=== PATIENT | male | born 1955 | race African-American/Black ===

== ENCOUNTER 2017-01-08 19:09 | Inpatient (IN) | payer BC ==
[~2017-01-08] VITALS: Ht 188 cm; Wt 75.7 kg
[2017-01-08] MEDS ORDERED: GLIP10TA13 PO (19:53)
[2017-01-08] MEDS ORDERED: INSU100I17 SQ (19:53)
[2017-01-08] MEDS ORDERED: RISP1TAB43 PO (19:53)
[2017-01-08] MEDS ORDERED: SERT25TA PO (19:53)
[2017-01-08] MEDS ORDERED: ENOX40DI SQ (19:53)
[2017-01-08] MEDS ORDERED: INSU100I13 SQ (19:53)
[2017-01-08] MEDS ORDERED: HYDR50TA6 PO (19:53)
[2017-01-08] MEDS ORDERED: LISI40TA PO (19:53)
[2017-01-08] MEDS ORDERED: AMLO10TA2 PO (19:53)
[2017-01-08] MEDS ORDERED: METF500T4 PO (19:53)
[2017-01-08] MEDS ORDERED: METHYL SALICYLATE/MENTHOL TOPICAL OINTMENT 29GM TUBE. TP PRN (20:00)
[2017-01-08] MEDS ORDERED: MAGNESIUM HYDROXIDE 2,400 MG/30 ML ORAL.SUSP. PO PRN (20:00)
[2017-01-08] MEDS ORDERED: MAG HYDROX/AL HYDROX/SIMETH 30 ML ORAL.SUSP PO PRN (20:00)
[2017-01-08] MEDS ORDERED: DEXTROSE 50% 25 GM / 50ML DISP.SYRIN. IV PRN ×2 (20:15)
--- NOTE | 2017-01-08 20:22 | PDOC ---
Exam Raymond Demential Exam: Raymond Note: Please also refer to the separate dictated note~for this date of service dictated separately.~Patient seen individually. Discussed the patient with Nursing staff reviewed the chart.~Reviewed interim history and current functioning. Reviewed vital signs,~Labs/ Radiology~and current medications noted below. Continue current treatment with the changes noted in the dictated addendum note Assessment: Labs: Laboratory Tests Test 01/08/17 19:33 Glucose (Fingerstick) 256 mg/dL (70-99) H Current Medications: Meds: Current Medications Acetaminophen (Tylenol) 650 mg PRN Q6HRS PRN PO PAIN / TEMP; Start 01/08/17 at 20:00 Multi-Ingredient Ointment (Analgesic [place]) 1 meenakshi PRN QID PRN TP MUSCLE PAIN; Start 01/08/17 at 20:00 Al Hydroxide/Mg Hydroxide (Mylanta Plus Xs) 15 ml PRN AFTMEALHC PRN PO DYSPEPSIA; Start 01/08/17 at 20:00 Magnesium Hydroxide (Milk Of Magnesia) 2,400 mg PRN QHS PRN PO CONSTIPATION; Start 01/08/17 at 20:00 Risperidone (RisperDAL) 1 mg BID PO ; Start 01/08/17 at 21:00 Sertraline HCl (Zoloft) 25 mg DAILY PO ; Start 01/09/17 at 09:00 Amlodipine Besylate (Norvasc) 10 mg HS PO ; Start 01/08/17 at 21:00; Status UNV Enoxaparin Sodium (Lovenox) 40 mg HS SQ ; Start 01/08/17 at 21:00; Status UNV Non-Formulary Medication 20 unit QHS SQ ; Start 01/08/17 at 21:00; Status UNV Dextrose 12.5 gm PRN Q15MIN PRN IV SEE COMMENTS; Start 01/08/17 at 20:15; Status UNV Insulin Aspart (NovoLOG) 0-5 UNITS TIDWMEALHC SQ ; Start 01/08/17 at 21:00; Status UNV Dextrose 12.5 gm PRN Q15MIN PRN IV SEE COMMENTS; Start 01/08/17 at 20:15; Status UNV Active Scripts Active Reported Lovenox (Enoxaparin Sodium) 40 Mg/0.4 Ml Disp.syrin 40 Mg SQ HS Zoloft (Sertraline Hcl) 25 Mg Tablet 25 Mg PO DAILY Risperdal (Risperidone) 1 Mg Tablet 1 Mg PO BID Metformin Hcl 500 Mg Tablet 500 Mg PO BIDWMEALS Lisinopril 40 Mg Tablet 40 Mg PO DAILY Lantus Solostar (Insulin Glargine,Hum.rec.anlog) 100 Unit/1 Ml Insuln.pen 20 Unit SQ QHS Novolog Flexpen (Insulin Aspart) 100 Unit/1 Ml Insuln.pen 0-7 Unit SQ TIDACHC Hydrochlorothiazide Tablet (Hydrochlorothiazide) 50 Mg Tablet 25 Mg PO DAILY Glipizide 10 Mg Tablet 10 Mg PO DAILY Amlodipine Besylate 10 Mg Tablet 10 Mg PO HS RUBI DELEON MD Jan 08, 2017 20:22
[2017-01-08] MEDS: amLODIPine BESYLATE 10 MG TABLET PO SCH (20:50)
[2017-01-08] MEDS: ENOXAPARIN 40 MG/0.4 ML DISP.SYRIN. SQ SCH (20:50)
[2017-01-08] MEDS: risperiDONE 1 MG TABLET. PO SCH (20:51)
[2017-01-08] MEDS: INSULIN DETEMIR 300 UNITS/3 ML INSULN.PEN. SQ SCH (20:52)
[2017-01-08] MEDS ORDERED: INSULIN ASPART 300 UNITS/3 ML INSULN.PEN SQ SCH (21:00)
--- NOTE | 2017-01-08 21:07 | EKG ---
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
[2017-01-08] MEDS ORDERED: LEDI1TAB PO (21:33)
[2017-01-08 23:01] VITALS: BP 176/101
[2017-01-09 05:58] VITALS: BP 138/76
[2017-01-09 07:00] LABS: BASO % 0 % (0-3); EOS # 0.2 x10^3/uL (0.0-0.7); EOS % 3 % (0-3); HEMATOCRIT 42.2 % (39.0-53.0); HEMOGLOBIN 14.7 g/dL (13.0-17.5); LYMPH # 2.1 x10^3/uL (1.0-4.8); LYMPH % 31 % (24-48); MEAN CORPUSCULAR HEMOGLOBIN 32 pg (25-35); MEAN CORPUSCULAR HGB CONC 35 g/dL (31-37); MEAN CORPUSCULAR VOLUME 91 fL (79-100); MONO # 0.5 x10^3/uL (0.0-1.1); MONO % 8 % (0-9); NEUT # 4.1 x10^3uL (1.8-7.7); NEUT % 58 % (31-73); PLATELET COUNT 160 x10^3/uL (140-400); RED BLOOD COUNT 4.66 x10^6/uL (4.30-5.70); RED CELL DISTRIBUTION WIDTH 13.9 % (11.5-14.5)
[2017-01-09 07:18] LABS: ALBUMIN 3.7 g/dL (3.4-5.0); ALBUMIN/GLOBULIN RATIO 0.8 (1.0-1.7); CALCIUM 9.4 mg/dL (8.5-10.1); CREATININE 1.7 mg/dL (0.7-1.3); GFR 49.7; MAGNESIUM 1.8 mg/dL (1.8-2.4); POTASSIUM 4.4 mmol/L (3.5-5.1); TOTAL BILIRUBIN 0.4 mg/dL (0.2-1.0); TOTAL PROTEIN 8.3 g/dL (6.4-8.2)
[2017-01-09] MEDS ORDERED: DEXTROSE 50% 25 GM / 50ML DISP.SYRIN. IV PRN (07:45)
[2017-01-09] MEDS: metFORMIN 500 MG TABLET PO SCH ×2 (08:07→17:03)
[2017-01-09] MEDS: LISINOPRIL 20 MG TABLET PO SCH (08:09)
[2017-01-09] MEDS: glipiZIDE 5 MG TABLET PO SCH (08:09)
[2017-01-09] MEDS: risperiDONE 1 MG TABLET. PO SCH ×2 (08:10→20:33)
[2017-01-09] MEDS: hydroCHLOROthiazide 25 MG TABLET PO SCH (08:10)
[2017-01-09] MEDS ORDERED: SERTRALINE 25 MG TABLET. PO SCH (09:00)
[2017-01-09] MEDS ORDERED: NON FORMULARY ITEM (Ledipasvir/Sofosbuvir (Harvoni 90-400 mg Tablet) 1 TAB) PO SCH (09:00)
[2017-01-09] MEDS: INSULIN ASPART 300 UNITS/3 ML INSULN.PEN SQ SCH ×3 (11:30→20:35)
[2017-01-09 14:38] LABS: THYROID STIM HORMONE (TSH) 1.502 uIU/mL (0.358-3.740)
[2017-01-09 16:18] VITALS: BP 143/86
[2017-01-09 17:02] LABS: BACTERIA,URINE 0 /HPF (0-FEW); BILIRUBIN,URINE NEG (NEG); CLARITY,URINE CLEAR; COLOR,URINE YELLOW; GLUCOSE,URINE NEG (NEG); NITRITE,URINE NEG (NEG); SQUAMOUS EPITHELIAL CELL,UR FEW /LPF; UROBILINOGEN,URINE 0.2 mg/dL (0.2 mg/dL); WBC,URINE OCC /HPF (0-4)
[2017-01-09 17:03] LABS: HYALINE CASTS, URINE MOD /HPF
[2017-01-09 17:15] LABS: T3 TOTAL 110 ng/dL (71-180); THYROXINE 9.5 ug/dL (4.5-12.0)
[2017-01-09] MEDS: amLODIPine BESYLATE 10 MG TABLET PO SCH (20:33)
[2017-01-09] MEDS: INSULIN DETEMIR 300 UNITS/3 ML INSULN.PEN. SQ SCH (20:34)
[2017-01-09] MEDS: ENOXAPARIN 40 MG/0.4 ML DISP.SYRIN. SQ SCH (20:35)
--- NOTE | 2017-01-09 20:50 | PDOC ---
Exam Raymond Demential Exam: Raymond Note: Please also refer to the separate dictated note~for this date of service dictated separately.~Patient seen individually. Discussed the patient with Nursing staff reviewed the chart.~Reviewed interim history and current functioning. Reviewed vital signs,~Labs/ Radiology~and current medications noted below. Continue current treatment with the changes noted in the dictated addendum note Assessment: Vital Signs: Vital Signs Date Time Temp Pulse Resp B/P (MAP) Pulse Ox O2 Delivery O2 Flow Rate FiO2 01/09/17 20:33 83 143/86 01/09/17 16:18 97.6 18 100 01/08/17 23:01 Room Air I&O Intake and Output 01/10/17 06:59 Intake Total 870 ml Balance 870 ml Intake Oral 870 ml Labs: Laboratory Tests Test 01/09/17 06:45 01/09/17 08:18 01/09/17 11:45 01/09/17 15:25 White Blood Count 7.0 x10^3/uL (4.0-11.0) Red Blood Count 4.66 x10^6/uL (4.30-5.70) Hemoglobin 14.7 g/dL (13.0-17.5) Hematocrit 42.2 % (39.0-53.0) Mean Corpuscular Volume 91 fL (79-100) Mean Corpuscular Hemoglobin 32 pg (25-35) Mean Corpuscular Hemoglobin Concent 35 g/dL (31-37) Red Cell Distribution Width 13.9 % (11.5-14.5) Platelet Count 160 x10^3/uL (140-400) Neutrophils (%) (Auto) 58 % (31-73) Lymphocytes (%) (Auto) 31 % (24-48) Monocytes (%) (Auto) 8 % (0-9) Eosinophils (%) (Auto) 3 % (0-3) Basophils (%) (Auto) 0 % (0-3) Neutrophils # (Auto) 4.1 x10^3uL (1.8-7.7) Lymphocytes # (Auto) 2.1 x10^3/uL (1.0-4.8) Monocytes # (Auto) 0.5 x10^3/uL (0.0-1.1) Eosinophils # (Auto) 0.2 x10^3/uL (0.0-0.7) Basophils # (Auto) 0.0 x10^3/uL (0.0-0.2) Sodium Level 140 mmol/L (136-145) Potassium Level 4.4 mmol/L (3.5-5.1) Chloride Level 104 mmol/L (98-107) Carbon Dioxide Level 26 mmol/L (21-32) Anion Gap 10 (6-14) Blood Urea Nitrogen 29 mg/dL (8-26) H Creatinine 1.7 mg/dL (0.7-1.3) H Estimated GFR (Cockcroft-Gault) 49.7 BUN/Creatinine Ratio 17 (6-20) Glucose Level 141 mg/dL (70-99) H Calcium Level 9.4 mg/dL (8.5-10.1) Magnesium Level 1.8 mg/dL (1.8-2.4) Iron Level 60 ug/dL (65-175) L Total Iron Binding Capacity 280 ug/dL (250-450) Iron Saturation 21 % (15-34) Total Bilirubin 0.4 mg/dL (0.2-1.0) Aspartate Amino Transferase (AST) 23 U/L (15-37) Alanine Aminotransferase (ALT) 34 U/L (16-63) Alkaline Phosphatase 73 U/L (46-116) Total Protein 8.3 g/dL (6.4-8.2) H Albumin 3.7 g/dL (3.4-5.0) Albumin/Globulin Ratio 0.8 (1.0-1.7) L Triglycerides Level 71 mg/dL (0-150) Cholesterol Level 102 mg/dL (0-200) LDL Cholesterol, Calculated 45 mg/dL (0-100) VLDL Cholesterol, Calculated 14 mg/dL (0-40) Non-HDL Cholesterol Calculated 59 mg/dL (0-129) HDL Cholesterol 43 mg/dL (40-60) Cholesterol/HDL Ratio 2.0 Vitamin B12 Level 499 pg/mL (247-911) 25-Hydroxy Vitamin D Total Pending Thyroid Stimulating Hormone (TSH) 1.502 uIU/mL (0.358-3.740) Thyroxine (T4) 9.5 ug/dL (4.5-12.0) Total Triiodothyronine (TT3) 110 ng/dL (71-180) RPR Titer Additional Testing Pending Glucose (Fingerstick) 149 mg/dL (70-99) H 142 mg/dL (70-99) H Urine Collection Type Unknown Urine Color Yellow Urine Clarity Clear Urine pH 5.0 Urine Specific [place] 1.020 Urine Protein Neg (NEG-TRACE) Urine Glucose (UA) Neg mg/dL (NEG) Urine Ketones (Stick) Neg mg/dL (NEG) Urine Blood Trace (NEG) Urine Nitrite Neg (NEG) Urine Bilirubin Neg (NEG) Urine Urobilinogen Dipstick 0.2 mg/dL (0.2 mg/dL) Urine Leukocyte Esterase Neg (NEG) Urine RBC 3-5 /HPF (0-2) Urine WBC Occ /HPF (0-4) Urine Squamous Epithelial Cells Few /LPF Urine Bacteria 0 /HPF (0-FEW) Urine Hyaline Casts Mod /HPF Urine Mucus Mod /LPF Test 01/09/17 16:56 01/09/17 19:53 Glucose (Fingerstick) 165 mg/dL (70-99) H 164 mg/dL (70-99) H Current Medications: Meds: Current Medications Acetaminophen (Tylenol) 650 mg PRN Q6HRS PRN PO PAIN / TEMP; Start 01/08/17 at 20:00 Multi-Ingredient Ointment (Analgesic [place]) 1 meenakshi PRN QID PRN TP MUSCLE PAIN; Start 01/08/17 at 20:00 Al Hydroxide/Mg Hydroxide (Mylanta Plus Xs) 15 ml PRN AFTMEALHC PRN PO DYSPEPSIA; Start 01/08/17 at 20:00 Magnesium Hydroxide (Milk Of Magnesia) 2,400 mg PRN QHS PRN PO CONSTIPATION; Start 01/08/17 at 20:00 Risperidone (RisperDAL) 1 mg BID PO Last administered on 01/09/17 08:10; Start 01/08/17 at 21:00; Stop 01/09/17 at 18:49; Status DC Sertraline HCl (Zoloft) 25 mg DAILY PO Last administered on 01/09/17 08:08; Start 01/09/17 at 09:00; Stop 01/09/17 at 18:35; Status DC Amlodipine Besylate (Norvasc) 10 mg HS PO Last administered on 01/09/17 20:33 ; Start 01/08/17 at 21:00 Enoxaparin Sodium (Lovenox) 40 mg HS SQ Last administered on 01/09/17 20:35; Start 01/08/17 at 21:00 Insulin Detemir (Levemir) 20 units QHS SQ Last administered on 01/09/17 20:34 ; Start 01/08/17 at 21:00 Dextrose 12.5 gm PRN Q15MIN PRN IV SEE COMMENTS; Start 01/08/17 at 20:15; Stop 01/08/17 at 20:25; Status DC Insulin Aspart (NovoLOG) 0-5 UNITS TIDWMEALHC SQ Last administered on 20:53; Start 01/08/17 at 21:00; Stop 01/09/17 at 07:50; Status DC Dextrose 12.5 gm PRN Q15MIN PRN IV SEE COMMENTS; Start 01/08/17 at 20:15 Glipizide (Glucotrol) 10 mg DAILY PO Last administered on 01/09/17 08:09; Start 01/09/17 at 09:00 Metformin HCl (Glucophage) 500 mg BIDWMEALS PO Last administered on 01/09/17 17:03; Start 01/09/17 at 08:00 Hydrochlorothiazide (Hydrodiuril) 25 mg DAILY PO Last administered on 08:10; Start 01/09/17 at 09:00 Non-Formulary Medication 1 tab DAILY PO ; Start 01/09/17 at 09:00; Status UNV Lisinopril (Prinivil) 40 mg DAILY PO Last administered on 01/09/17 08:09; Start 01/09/17 at 09:00 Insulin Aspart (NovoLOG) 0-7 UNITS QIDACHS SQ Last administered on 01/09/17 17:06; Start 01/09/17 at 11:30 Dextrose 12.5 gm PRN Q15MIN PRN IV SEE COMMENTS; Start 01/09/17 at 07:45; Status Cancel Fluvoxamine Maleate (Luvox) 25 mg HS PO Last administered on 01/09/17 20:33; Start 01/09/17 at 21:00 Risperidone (RisperDAL) 1 mg DAILY PO ; Start 01/10/17 at 09:00 Risperidone (RisperDAL) 1.5 mg QHS PO Last administered on 01/09/17t 20:33; Start 01/09/17 at 21:00 Active Scripts Active Reported Harvoni 90-400 mg Tablet (Ledipasvir/Sofosbuvir) 1 Each Tablet 1 Tab PO DAILY Lovenox (Enoxaparin Sodium) 40 Mg/0.4 Ml Disp.syrin 40 Mg SQ HS Zoloft (Sertraline Hcl) 25 Mg Tablet 25 Mg PO DAILY Risperdal (Risperidone) 1 Mg Tablet 1 Mg PO BID Metformin Hcl 500 Mg Tablet 500 Mg PO BIDWMEALS Lisinopril 40 Mg Tablet 40 Mg PO DAILY Lantus Solostar (Insulin Glargine,Hum.rec.anlog) 100 Unit/1 Ml Insuln.pen 20 Unit SQ QHS Novolog Flexpen (Insulin Aspart) 100 Unit/1 Ml Insuln.pen 0-7 Unit SQ TIDACHC Hydrochlorothiazide Tablet (Hydrochlorothiazide) 50 Mg Tablet 25 Mg PO DAILY Glipizide 10 Mg Tablet 10 Mg PO DAILY Amlodipine Besylate 10 Mg Tablet 10 Mg PO HS Diagnosis: Problems: (1) Anxiety disorder (2) Psychosis, atypical (3) Obsessive compulsive disorder (4) Alcoholic psychosis RUBI DELEON MD Jan 09, 2017 20:50
[2017-01-10 04:14] LABS: HEMOGLOBIN A1C 6.6 % (4.8-5.6)
[2017-01-10 06:32] VITALS: BP 136/76
[2017-01-10] MEDS: INSULIN ASPART 300 UNITS/3 ML INSULN.PEN SQ SCH ×4 (07:23→21:35)
[2017-01-10] MEDS: metFORMIN 500 MG TABLET PO SCH ×2 (07:25→17:23)
[2017-01-10] MEDS: glipiZIDE 5 MG TABLET PO SCH (08:40)
[2017-01-10] MEDS: LISINOPRIL 20 MG TABLET PO SCH (08:41)
[2017-01-10] MEDS: hydroCHLOROthiazide 25 MG TABLET PO SCH (08:41)
[2017-01-10] MEDS: risperiDONE 1 MG TABLET. PO SCH ×2 (08:44→19:16)
[2017-01-10 16:20] VITALS: BP 113/74
[2017-01-10] MEDS: CHOLECALCIFEROL (VITAMIN D3) 1,000 UNIT TABLET PO SCH (17:23)
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
[2017-01-10] MEDS: amLODIPine BESYLATE 10 MG TABLET PO SCH (19:16)
[2017-01-10] MEDS: ENOXAPARIN 40 MG/0.4 ML DISP.SYRIN. SQ SCH (19:17)
[2017-01-10] MEDS: INSULIN DETEMIR 300 UNITS/3 ML INSULN.PEN. SQ SCH (19:54)
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
--- NOTE | 2017-01-10 20:54 | PDOC ---
Exam Raymond Demential Exam: Raymond Note: Please also refer to the separate dictated note~for this date of service dictated separately.~Patient seen individually. Discussed the patient with Nursing staff reviewed the chart.~Reviewed interim history and current functioning. Reviewed vital signs,~Labs/ Radiology~and current medications noted below. Continue current treatment with the changes noted in the dictated addendum note Assessment: Vital Signs: Vital Signs Date Time Temp Pulse Resp B/P (MAP) Pulse Ox O2 Delivery O2 Flow Rate FiO2 01/10/17 19:16 88 113/74 01/10/17 16:20 98.0 20 99 01/08/17 23:01 Room Air I&O Intake and Output 01/11/17 07:00 Intake Total 1560 ml Balance 1560 ml Intake Oral 1560 ml Labs: Laboratory Tests Test 01/10/17 07:08 01/10/17 11:43 01/10/17 16:32 01/10/17 19:00 Glucose (Fingerstick) 134 mg/dL (70-99) H 159 mg/dL (70-99) H 211 mg/dL (70-99) H 208 mg/dL (70-99) H Current Medications: Meds: Current Medications Acetaminophen (Tylenol) 650 mg PRN Q6HRS PRN PO PAIN / TEMP; Start 01/08/17 at 20:00 Multi-Ingredient Ointment (Analgesic [place]) 1 meenakshi PRN QID PRN TP MUSCLE PAIN; Start 01/08/17 at 20:00 Al Hydroxide/Mg Hydroxide (Mylanta Plus Xs) 15 ml PRN AFTMEALHC PRN PO DYSPEPSIA; Start 01/08/17 at 20:00 Magnesium Hydroxide (Milk Of Magnesia) 2,400 mg PRN QHS PRN PO CONSTIPATION; Start 01/08/17 at 20:00 Risperidone (RisperDAL) 1 mg BID PO Last administered on 01/09/17 08:10; Start 01/08/17 at 21:00; Stop 01/09/17 at 18:49; Status DC Sertraline HCl (Zoloft) 25 mg DAILY PO Last administered on 01/09/17 08:08; Start 01/09/17 at 09:00; Stop 01/09/17 at 18:35; Status DC Amlodipine Besylate (Norvasc) 10 mg HS PO Last administered on 01/10/17 19:16 ; Start 01/08/17 at 21:00 Enoxaparin Sodium (Lovenox) 40 mg HS SQ Last administered on 01/10/17 19:17; Start 01/08/17 at 21:00 Insulin Detemir (Levemir) 20 units QHS SQ Last administered on 01/09/17 20:34 ; Start 01/08/17 at 21:00; Stop 01/10/17 at 16:00; Status DC Dextrose 12.5 gm PRN Q15MIN PRN IV SEE COMMENTS; Start 01/08/17 at 20:15; Stop 01/08/17 at 20:25; Status DC Insulin Aspart (NovoLOG) 0-5 UNITS TIDWMEALHC SQ Last administered on 20:53; Start 01/08/17 at 21:00; Stop 01/09/17 at 07:50; Status DC Dextrose 12.5 gm PRN Q15MIN PRN IV SEE COMMENTS; Start 01/08/17 at 20:15 Glipizide (Glucotrol) 10 mg DAILY PO Last administered on 01/10/17 08:40; Start 01/09/17 at 09:00 Metformin HCl (Glucophage) 500 mg BIDWMEALS PO Last administered on 01/10/17 17:23; Start 01/09/17 at 08:00 Hydrochlorothiazide (Hydrodiuril) 25 mg DAILY PO Last administered on 08:41; Start 01/09/17 at 09:00 Non-Formulary Medication 1 tab DAILY PO ; Start 01/09/17 at 09:00; Status UNV Lisinopril (Prinivil) 40 mg DAILY PO Last administered on 01/10/17 08:41; Start 01/09/17 at 09:00 Insulin Aspart (NovoLOG) 0-7 UNITS QIDACHS SQ Last administered on 01/10/17 17:24; Start 01/09/17 at 11:30 Dextrose 12.5 gm PRN Q15MIN PRN IV SEE COMMENTS; Start 01/09/17 at 07:45; Status Cancel Fluvoxamine Maleate (Luvox) 25 mg HS PO Last administered on 01/10/17 19:16; Start 01/09/17 at 21:00 Risperidone (RisperDAL) 1 mg DAILY PO Last administered on 01/10/17 08:44; Start 01/10/17 at 09:00 Risperidone (RisperDAL) 1.5 mg QHS PO Last administered on 01/10/17 19:16; Start 01/09/17 at 21:00 Vitamin D (Vitamin D3) 2,000 unit DAILYBFRSUP PO Last administered on 17:23; Start 01/10/17 at 17:00 Insulin Detemir (Levemir) 20 units QHS SQ Last administered on 01/10/17 19:54 ; Start 01/10/17 at 16:00 Active Scripts Active Reported Harvoni 90-400 mg Tablet (Ledipasvir/Sofosbuvir) 1 Each Tablet 1 Tab PO DAILY Lovenox (Enoxaparin Sodium) 40 Mg/0.4 Ml Disp.syrin 40 Mg SQ HS Zoloft (Sertraline Hcl) 25 Mg Tablet 25 Mg PO DAILY Risperdal (Risperidone) 1 Mg Tablet 1 Mg PO BID Metformin Hcl 500 Mg Tablet 500 Mg PO BIDWMEALS Lisinopril 40 Mg Tablet 40 Mg PO DAILY Lantus Solostar (Insulin Glargine,Hum.rec.anlog) 100 Unit/1 Ml Insuln.pen 20 Unit SQ QHS Novolog Flexpen (Insulin Aspart) 100 Unit/1 Ml Insuln.pen 0-7 Unit SQ TIDACHC Hydrochlorothiazide Tablet (Hydrochlorothiazide) 50 Mg Tablet 25 Mg PO DAILY Glipizide 10 Mg Tablet 10 Mg PO DAILY Amlodipine Besylate 10 Mg Tablet 10 Mg PO HS Diagnosis: Problems: (1) Anxiety disorder (2) Psychosis, atypical (3) Obsessive compulsive disorder (4) Hypertension (5) Hepatitis C (6) Alcoholic psychosis RUBI DELEON MD Jan 10, 2017 20:54
[2017-01-11 05:50] VITALS: BP 148/93
[2017-01-11] MEDS: risperiDONE 1 MG TABLET. PO SCH ×2 (07:18→20:13)
[2017-01-11] MEDS: hydroCHLOROthiazide 25 MG TABLET PO SCH (07:18)
[2017-01-11] MEDS: glipiZIDE 5 MG TABLET PO SCH (07:18)
[2017-01-11] MEDS: metFORMIN 500 MG TABLET PO SCH (07:19)
[2017-01-11] MEDS: LISINOPRIL 20 MG TABLET PO SCH (07:19)
[2017-01-11] MEDS: INSULIN ASPART 300 UNITS/3 ML INSULN.PEN SQ SCH ×4 (07:30→20:18)
[2017-01-11 16:31] VITALS: BP 154/85
[2017-01-11] MEDS: CHOLECALCIFEROL (VITAMIN D3) 1,000 UNIT TABLET PO SCH (17:12)
[2017-01-11] MEDS: ENOXAPARIN 40 MG/0.4 ML DISP.SYRIN. SQ SCH (20:13)
[2017-01-11] MEDS: amLODIPine BESYLATE 10 MG TABLET PO SCH (20:13)
[2017-01-11] MEDS: INSULIN DETEMIR 300 UNITS/3 ML INSULN.PEN. SQ SCH (20:16)
--- NOTE | 2017-01-11 20:52 | PDOC ---
Exam Raymond Demential Exam: Raymond Note: Please also refer to the separate dictated note~for this date of service dictated separately.~Patient seen individually. Discussed the patient with Nursing staff reviewed the chart.~Reviewed interim history and current functioning. Reviewed vital signs,~Labs/ Radiology~and current medications noted below. Continue current treatment with the changes noted in the dictated addendum note Assessment: Vital Signs: Vital Signs Date Time Temp Pulse Resp B/P (MAP) Pulse Ox O2 Delivery O2 Flow Rate FiO2 01/11/17 20:13 79 154/85 01/11/17 16:31 98.4 16 100 01/08/17 23:01 Room Air I&O Intake and Output 01/12/17 07:00 Intake Total 720 ml Balance 720 ml Intake Oral 720 ml Labs: Laboratory Tests Test 01/11/17 07:28 01/11/17 11:28 01/11/17 16:39 01/11/17 19:03 Glucose (Fingerstick) 81 mg/dL (70-99) 154 mg/dL (70-99) H 176 mg/dL (70-99) H 281 mg/dL (70-99) H Current Medications: Meds: Current Medications Acetaminophen (Tylenol) 650 mg PRN Q6HRS PRN PO PAIN / TEMP; Start 01/08/17 at 20:00 Multi-Ingredient Ointment (Analgesic Hensley) 1 meenakshi PRN QID PRN TP MUSCLE PAIN; Start 01/08/17 at 20:00 Al Hydroxide/Mg Hydroxide (Mylanta Plus Xs) 15 ml PRN AFTMEALHC PRN PO DYSPEPSIA; Start 01/08/17 at 20:00 Magnesium Hydroxide (Milk Of Magnesia) 2,400 mg PRN QHS PRN PO CONSTIPATION; Start 01/08/17 at 20:00 Risperidone (RisperDAL) 1 mg BID PO Last administered on 01/09/17 08:10; Start 01/08/17 at 21:00; Stop 01/09/17 at 18:49; Status DC Sertraline HCl (Zoloft) 25 mg DAILY PO Last administered on 01/09/17 08:08; Start 01/09/17 at 09:00; Stop 01/09/17 at 18:35; Status DC Amlodipine Besylate (Norvasc) 10 mg HS PO Last administered on 01/11/17 20:13 ; Start 01/08/17 at 21:00 Enoxaparin Sodium (Lovenox) 40 mg HS SQ Last administered on 01/11/17 20:13; Start 01/08/17 at 21:00 Insulin Detemir (Levemir) 20 units QHS SQ Last administered on 01/09/17 20:34 ; Start 01/08/17 at 21:00; Stop 01/10/17 at 16:00; Status DC Dextrose 12.5 gm PRN Q15MIN PRN IV SEE COMMENTS; Start 01/08/17 at 20:15; Stop 01/08/17 at 20:25; Status DC Insulin Aspart (NovoLOG) 0-5 UNITS TIDWMEALHC SQ Last administered on 20:53; Start 01/08/17 at 21:00; Stop 01/09/17 at 07:50; Status DC Dextrose 12.5 gm PRN Q15MIN PRN IV SEE COMMENTS; Start 01/08/17 at 20:15 Glipizide (Glucotrol) 10 mg DAILY PO Last administered on 01/11/17 07:18; Start 01/09/17 at 09:00 Metformin HCl (Glucophage) 500 mg BIDWMEALS PO Last administered on 01/11/17 07:19; Start 01/09/17 at 08:00; Stop 01/11/17 at 15:29; Status DC Hydrochlorothiazide (Hydrodiuril) 25 mg DAILY PO Last administered on 07:18; Start 01/09/17 at 09:00 Non-Formulary Medication 1 tab DAILY PO ; Start 01/09/17 at 09:00; Status UNV Lisinopril (Prinivil) 40 mg DAILY PO Last administered on 01/11/17 07:19; Start 01/09/17 at 09:00 Insulin Aspart (NovoLOG) 0-7 UNITS QIDACHS SQ Last administered on 01/11/17 20:18; Start 01/09/17 at 11:30 Dextrose 12.5 gm PRN Q15MIN PRN IV SEE COMMENTS; Start 01/09/17 at 07:45; Status Cancel Fluvoxamine Maleate (Luvox) 25 mg HS PO Last administered on 01/11/17 20:12; Start 01/09/17 at 21:00; Stop 01/11/17 at 23:00 Risperidone (RisperDAL) 1 mg DAILY PO Last administered on 01/11/17 07:18; Start 01/10/17 at 09:00 Risperidone (RisperDAL) 1.5 mg QHS PO Last administered on 01/11/17 20:13; Start 01/09/17 at 21:00 Vitamin D (Vitamin D3) 2,000 unit DAILYBFRSUP PO Last administered on 17:12; Start 01/10/17 at 17:00 Insulin Detemir (Levemir) 20 units QHS SQ Last administered on 01/11/17 20:16 ; Start 01/10/17 at 16:00 Fluvoxamine Maleate (Luvox) 50 mg HS PO ; Start 01/12/17 at 21:00 Active Scripts Active Reported Harvoni 90-400 mg Tablet (Ledipasvir/Sofosbuvir) 1 Each Tablet 1 Tab PO DAILY Lovenox (Enoxaparin Sodium) 40 Mg/0.4 Ml Disp.syrin 40 Mg SQ HS Zoloft (Sertraline Hcl) 25 Mg Tablet 25 Mg PO DAILY Risperdal (Risperidone) 1 Mg Tablet 1 Mg PO BID Metformin Hcl 500 Mg Tablet 500 Mg PO BIDWMEALS Lisinopril 40 Mg Tablet 40 Mg PO DAILY Lantus Solostar (Insulin Glargine,Hum.rec.anlog) 100 Unit/1 Ml Insuln.pen 20 Unit SQ QHS Novolog Flexpen (Insulin Aspart) 100 Unit/1 Ml Insuln.pen 0-7 Unit SQ TIDACHC Hydrochlorothiazide Tablet (Hydrochlorothiazide) 50 Mg Tablet 25 Mg PO DAILY Glipizide 10 Mg Tablet 10 Mg PO DAILY Amlodipine Besylate 10 Mg Tablet 10 Mg PO HS Diagnosis: Problems: (1) Anxiety disorder (2) Psychosis, atypical (3) Obsessive compulsive disorder (4) Hypertension (5) Hepatitis C (6) Alcoholic psychosis RUBI DELEON MD Jan 11, 2017 20:52
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
[2017-01-12 05:56] VITALS: BP 137/75
[2017-01-12] MEDS: INSULIN ASPART 300 UNITS/3 ML INSULN.PEN SQ SCH ×4 (07:30→20:10)
[2017-01-12] MEDS: hydroCHLOROthiazide 25 MG TABLET PO SCH (08:08)
[2017-01-12] MEDS: glipiZIDE 5 MG TABLET PO SCH (08:08)
[2017-01-12] MEDS: risperiDONE 1 MG TABLET. PO SCH ×2 (08:09→20:08)
[2017-01-12] MEDS: LISINOPRIL 20 MG TABLET PO SCH (08:09)
[2017-01-12] MEDS: CHOLECALCIFEROL (VITAMIN D3) 1,000 UNIT TABLET PO SCH (12:11)
[2017-01-12] MEDS: ACETAMINOPHEN 325 MG TABLET PO PRN (13:54)
--- NOTE | 2017-01-12 15:18 | PN ---
DATE: 01/11/2017 This is a late entry for date of service 01/11/2017 and covers elements not covered in my initial note of 01/11/2017. SUBJECTIVE: Overall, per nursing report, the patient has not voiced overt psychotic symptoms. He tends to minimize this, tries to camouflage it and I addressed this with him individually. I also talked to his daughter on the telephone after the patient handed the telephone to me while I came to visit him on rounds and he was talking to his daughter who had delivered a baby in the hospital. He is compliant with his medications. REVIEW OF SYSTEMS: No CV, , pulmonary, eye, ENT system symptoms on review. Reliability varies. MENTAL STATUS EXAM: Oriented to himself and situation. Speech is coherent, abstraction fair, computation impaired, language function intact. Despite the above, the patient is still psychotic. No active suicidal or homicidal ideation. Earlier in the day, I discussed at length with [facility] social service staff about patient's progress and my visit from 01/10/2017 to help with insurance authorization. IMPRESSION: Unchanged from initial note. PLAN: Continue current psychotropics and gradually increase the Luvox to 50 mg a day and further as needed; Risperdal is at 2.5 mg a day, starting 01/12/2017, we will increase the bedtime dosage to 1.75 mg, continue 1 mg in the morning. Make further adjustments as clinically indicated. Reviewed drug interactions, risk/benefit ratio favors no further change. RUBI DELEON MD DR: RAMRIO/barrett JOB#: [id number] / [id number]
[2017-01-12 16:16] VITALS: BP 149/99
[2017-01-12] MEDS: amLODIPine BESYLATE 10 MG TABLET PO SCH (20:05)
[2017-01-12] MEDS: risperiDONE 0.25 MG TABLET. PO SCH (20:08)
[2017-01-12] MEDS: risperiDONE 0.5 MG TABLET. PO SCH (20:08)
[2017-01-12] MEDS: INSULIN DETEMIR 300 UNITS/3 ML INSULN.PEN. SQ SCH (20:10)
[2017-01-12] MEDS: ENOXAPARIN 40 MG/0.4 ML DISP.SYRIN. SQ SCH (20:11)
--- NOTE | 2017-01-12 21:55 | PDOC ---
Exam Raymond Demential Exam: Raymond Note: Please also refer to the separate dictated note~for this date of service dictated separately.~Patient seen individually. Discussed the patient with Nursing staff reviewed the chart.~Reviewed interim history and current functioning. Reviewed vital signs,~Labs/ Radiology~and current medications noted below. Continue current treatment with the changes noted in the dictated addendum note Assessment: Vital Signs: Vital Signs Date Time Temp Pulse Resp B/P (MAP) Pulse Ox O2 Delivery O2 Flow Rate FiO2 01/12/17 20:05 88 149/99 01/12/17 16:16 98.2 16 97 01/12/17 05:56 Room Air I&O Intake and Output 01/13/17 07:00 Intake Total 1680 ml Balance 1680 ml Intake Oral 1680 ml Labs: Laboratory Tests Test 01/12/17 07:27 01/12/17 11:17 01/12/17 16:34 01/12/17 18:55 Glucose (Fingerstick) 107 mg/dL (70-99) H 182 mg/dL (70-99) H 267 mg/dL (70-99) H 224 mg/dL (70-99) H Current Medications: Meds: Current Medications Acetaminophen (Tylenol) 650 mg PRN Q6HRS PRN PO PAIN / TEMP Last administered on 01/12/17 13:54; Start 01/08/17 at 20:00 Multi-Ingredient Ointment (Analgesic Grimes) 1 meenakshi PRN QID PRN TP MUSCLE PAIN; Start 01/08/17 at 20:00 Al Hydroxide/Mg Hydroxide (Mylanta Plus Xs) 15 ml PRN AFTMEALHC PRN PO DYSPEPSIA; Start 01/08/17 at 20:00 Magnesium Hydroxide (Milk Of Magnesia) 2,400 mg PRN QHS PRN PO CONSTIPATION; Start 01/08/17 at 20:00 Risperidone (RisperDAL) 1 mg BID PO Last administered on 01/09/17 08:10; Start 01/08/17 at 21:00; Stop 01/09/17 at 18:49; Status DC Sertraline HCl (Zoloft) 25 mg DAILY PO Last administered on 01/09/17 08:08; Start 01/09/17 at 09:00; Stop 01/09/17 at 18:35; Status DC Amlodipine Besylate (Norvasc) 10 mg HS PO Last administered on 01/12/17 20:05 ; Start 01/08/17 at 21:00 Enoxaparin Sodium (Lovenox) 40 mg HS SQ Last administered on 01/12/17 20:11; Start 01/08/17 at 21:00 Insulin Detemir (Levemir) 20 units QHS SQ Last administered on 01/09/17 20:34 ; Start 01/08/17 at 21:00; Stop 01/10/17 at 16:00; Status DC Dextrose 12.5 gm PRN Q15MIN PRN IV SEE COMMENTS; Start 01/08/17 at 20:15; Stop 01/08/17 at 20:25; Status DC Insulin Aspart (NovoLOG) 0-5 UNITS TIDWMEALHC SQ Last administered on 20:53; Start 01/08/17 at 21:00; Stop 01/09/17 at 07:50; Status DC Dextrose 12.5 gm PRN Q15MIN PRN IV SEE COMMENTS; Start 01/08/17 at 20:15 Glipizide (Glucotrol) 10 mg DAILY PO Last administered on 01/12/17 08:08; Start 01/09/17 at 09:00 Metformin HCl (Glucophage) 500 mg BIDWMEALS PO Last administered on 01/11/17 07:19; Start 01/09/17 at 08:00; Stop 01/11/17 at 15:29; Status DC Hydrochlorothiazide (Hydrodiuril) 25 mg DAILY PO Last administered on 08:08; Start 01/09/17 at 09:00 Non-Formulary Medication 1 tab DAILY PO ; Start 01/09/17 at 09:00; Status UNV Lisinopril (Prinivil) 40 mg DAILY PO Last administered on 01/12/17 08:09; Start 01/09/17 at 09:00 Insulin Aspart (NovoLOG) 0-7 UNITS QIDACHS SQ Last administered on 01/12/17 20:10; Start 01/09/17 at 11:30 Dextrose 12.5 gm PRN Q15MIN PRN IV SEE COMMENTS; Start 01/09/17 at 07:45; Status Cancel Fluvoxamine Maleate (Luvox) 25 mg HS PO Last administered on 01/11/17 20:12; Start 01/09/17 at 21:00; Stop 01/11/17 at 23:00; Status DC Risperidone (RisperDAL) 1 mg DAILY PO Last administered on 01/12/17 08:09; Start 01/10/17 at 09:00 Risperidone (RisperDAL) 1.5 mg QHS PO Last administered on 01/11/17 20:13; Start 01/09/17 at 21:00; Stop 01/12/17 at 07:53; Status DC Vitamin D (Vitamin D3) 2,000 unit DAILYBFRSUP PO Last administered on 12:11; Start 01/10/17 at 17:00 Insulin Detemir (Levemir) 20 units QHS SQ Last administered on 01/12/17 20:10 ; Start 01/10/17 at 16:00 Fluvoxamine Maleate (Luvox) 50 mg HS PO Last administered on 01/12/17 20:08; Start 01/12/17 at 21:00 Risperidone (RisperDAL) 1 mg QHS PO Last administered on 01/12/17 20:08; Start 01/12/17 at 21:00 Risperidone (RisperDAL) 0.5 mg QHS PO Last administered on 01/12/17 20:08; Start 01/12/17 at 21:00 Risperidone (RisperDAL) 0.25 mg QHS PO Last administered on 01/12/17 20:08; Start 01/12/17 at 21:00 Active Scripts Active Reported Harvoni 90-400 mg Tablet (Ledipasvir/Sofosbuvir) 1 Each Tablet 1 Tab PO DAILY Lovenox (Enoxaparin Sodium) 40 Mg/0.4 Ml Disp.syrin 40 Mg SQ HS Zoloft (Sertraline Hcl) 25 Mg Tablet 25 Mg PO DAILY Risperdal (Risperidone) 1 Mg Tablet 1 Mg PO BID Metformin Hcl 500 Mg Tablet 500 Mg PO BIDWMEALS Lisinopril 40 Mg Tablet 40 Mg PO DAILY Lantus Solostar (Insulin Glargine,Hum.rec.anlog) 100 Unit/1 Ml Insuln.pen 20 Unit SQ QHS Novolog Flexpen (Insulin Aspart) 100 Unit/1 Ml Insuln.pen 0-7 Unit SQ TIDACHC Hydrochlorothiazide Tablet (Hydrochlorothiazide) 50 Mg Tablet 25 Mg PO DAILY Glipizide 10 Mg Tablet 10 Mg PO DAILY Amlodipine Besylate 10 Mg Tablet 10 Mg PO HS Diagnosis: Problems: (1) Anxiety disorder (2) Psychosis, atypical (3) Obsessive compulsive disorder (4) Hypertension (5) Hepatitis C (6) Alcoholic psychosis RUBI DELEON MD Jan 12, 2017 21:55
[2017-01-13 06:02] VITALS: BP 142/84
[2017-01-13] MEDS: INSULIN ASPART 300 UNITS/3 ML INSULN.PEN SQ SCH ×4 (07:30→19:27)
[2017-01-13] MEDS: glipiZIDE 5 MG TABLET PO SCH (07:42)
[2017-01-13] MEDS: risperiDONE 1 MG TABLET. PO SCH ×2 (07:43→19:24)
[2017-01-13] MEDS: hydroCHLOROthiazide 25 MG TABLET PO SCH (07:43)
[2017-01-13] MEDS: LISINOPRIL 20 MG TABLET PO SCH (07:43)
--- NOTE | 2017-01-13 14:13 | PN ---
DATE: 01/12/2017 PSYCHIATRIC PROGRESS NOTE This note covers elements, not covered in my initial note of 01/12/2017. SUBJECTIVE: I met with the patient at some length on the morning of 01/12/2017. Per nursing report, the patient has been fairly appropriate on the unit. He does not voice overt hallucinations, ____ . REVIEW OF SYSTEMS: No CV, , pulmonary, eye, ENT system symptoms on review. MENTAL STATUS EXAM: Oriented to himself and situation. Speech is coherent, abstraction fair, computation impaired, language function intact. Attention span short. Mood and affect showing improvement. No active hallucinations noted. LABORATORY DATA: Reviewed. IMPRESSION: Unchanged from initial note. PLAN: Continue current psychotropics mentioned in my initial note. Reviewed drug interactions. Risk/benefit ratio favors no further change. MAN Christos DELEON MD DR: RAMIRO/barrett JOB#: [id number] / [id number]
[2017-01-13 16:08] VITALS: BP 151/79
[2017-01-13] MEDS: CHOLECALCIFEROL (VITAMIN D3) 1,000 UNIT TABLET PO SCH (17:00)
[2017-01-13] MEDS: risperiDONE 0.5 MG TABLET. PO SCH (19:24)
[2017-01-13] MEDS: risperiDONE 0.25 MG TABLET. PO SCH (19:24)
[2017-01-13] MEDS: amLODIPine BESYLATE 10 MG TABLET PO SCH (19:25)
[2017-01-13] MEDS: INSULIN DETEMIR 300 UNITS/3 ML INSULN.PEN. SQ SCH (19:26)
[2017-01-13] MEDS: ACETAMINOPHEN 325 MG TABLET PO PRN (22:06)
--- NOTE | 2017-01-14 00:34 | PN ---
DATE: 01/13/2017 REFERRING PHYSICIAN: RUBI HERBERT M.D. SUBJECTIVE: The patient denies any new medical or neurological complaints. He is calm, drinks, eats and sleeps well. He has been appropriate in the unit and he denies hallucination or delusion. OBJECTIVE: GENERAL: The patient is a well-developed, well-nourished white male, not in acute distress. VITAL SIGNS: Blood pressure 142/84, respiratory rate is 20, pulse is 71 regular, temperature 97.8, oxygen saturation 99% on room air. HEENT: Normocephalic, atraumatic, otherwise unremarkable. NECK: Supple. Negative for carotid bruit, lymphadenopathy or JVD or thyromegaly. LUNGS: Clear to A and P. CARDIOVASCULAR: Regular rate and rhythm, normal S1, S2. ABDOMEN: Soft. Bowel sounds positive. EXTREMITIES: Negative for cyanosis, clubbing or pitting edema. NEUROLOGIC: The patient is alert and oriented to himself and situation. The speech is coherent. There is no language dysfunction. Judgment and abstract thinking are impaired. There is no language dysfunction. Short memory is fair. The patient denies hallucination or delusion. Cranial nerves are intact. Motor Examination: No focal muscle bulk was seen. The tone is normal. The strength is 5/5 throughout. Sensory examination revealed normal pinprick and light touch senses throughout. Deep tendon reflexes are symmetric and hypoactive with absent Achilles responses. Gait and coordination are normal. IMPRESSION: 1. Intermittent psychosis with delusion, paranoia and hallucinations. 2. Multiple medical problems include hypertension, hepatitis C, diabetes mellitus type 2, hyperlipidemia and history of alcohol use. RECOMMENDATIONS: 1. Continue with current medical and psychiatric care and psychiatric care initiated by Dr. Herbert. M Elba LARSON MD DR: DC/barrett JOB#: [id number] / [id number]
[2017-01-14 06:07] VITALS: BP 122/72
[2017-01-14] MEDS: INSULIN ASPART 300 UNITS/3 ML INSULN.PEN SQ SCH ×4 (07:30→19:44)
[2017-01-14] MEDS: risperiDONE 1 MG TABLET. PO SCH ×2 (09:47→19:31)
[2017-01-14] MEDS: hydroCHLOROthiazide 25 MG TABLET PO SCH (09:47)
[2017-01-14] MEDS: LISINOPRIL 20 MG TABLET PO SCH (09:47)
[2017-01-14] MEDS: glipiZIDE 5 MG TABLET PO SCH (09:47)
[2017-01-14 16:11] VITALS: BP 146/75
[2017-01-14] MEDS: CHOLECALCIFEROL (VITAMIN D3) 1,000 UNIT TABLET PO SCH (17:23)
[2017-01-14] MEDS: risperiDONE 0.5 MG TABLET. PO SCH (19:31)
[2017-01-14] MEDS: amLODIPine BESYLATE 10 MG TABLET PO SCH (19:31)
[2017-01-14] MEDS: risperiDONE 0.25 MG TABLET. PO SCH (19:31)
[2017-01-14] MEDS: INSULIN DETEMIR 300 UNITS/3 ML INSULN.PEN. SQ SCH (19:40)
[2017-01-15] MEDS ORDERED: ACET325T9 PO (00:51)
[2017-01-15] MEDS ORDERED: CHOL10003 PO (00:52)
[2017-01-15] MEDS ORDERED: MAG30ORA2 PO (01:00)
[2017-01-15] MEDS ORDERED: MAGN2400 PO (01:00)
[2017-01-15] MEDS ORDERED: FLUV50TA2 PO (01:01)
[2017-01-15] MEDS ORDERED: RISP1TAB3 PO (01:05)
[2017-01-15] MEDS ORDERED: RISP0.5T24 PO (01:14)
[2017-01-15] MEDS ORDERED: RISP0.5T3 PO (01:15)
--- NOTE | 2017-01-15 02:55 | PN ---
DATE: 01/14/2017 SUBJECTIVE: The patient was seen today. Met with the staff, chart reviewed. I am covering for Dr. Herbert. Staff reports some improvement, still withdrawn, and to continue minimizing the problems. The patient admits to having hepatitis C and he claims that he got it when he got the injection long time ago. The patient apparently not showing much insight to his problems. The patient apparently admits to using intravenous heroin at one time with girlfriend who also using needles. The patient continues to be paranoid, delusional and also having some problems with his thinking process and also some blunting of affect. OBSERVATION: Temperature 98.1, blood pressure 122/72, pulse 72, respiration 18, O2 sat 98%. Slept about 7 hours last night. CURRENT MEDICATIONS: Include Risperdal 0.25 mg at night and 0.5 mg at night, Risperdal 1 mg at night, Zoloft 50 mg at night, Risperdal 1 mg daily p.o. The patient is also on insulin, lisinopril, hydrochlorothiazide, glipizide, amlodipine. The patient is not having any side effects to the medications. ASSESSMENT: Neurocognitive disorder, most likely vascular with delusions and behavioral disturbances. PLAN: To continue with treatment. Consider discharge tomorrow. JULIANNA PRICE MD DR: ELSIE/barrett JOB#: [id number] / [id number]
[2017-01-15 06:34] VITALS: BP 138/79
[2017-01-15] MEDS: INSULIN ASPART 300 UNITS/3 ML INSULN.PEN SQ SCH ×2 (07:30→11:30)
[2017-01-15 08:01] LABS: BASO % 0 % (0-3); EOS # 0.2 x10^3/uL (0.0-0.7); EOS % 3 % (0-3); HEMATOCRIT 36.4 % (39.0-53.0); HEMOGLOBIN 12.3 g/dL (13.0-17.5); LYMPH % 29 % (24-48); MEAN CORPUSCULAR HEMOGLOBIN 31 pg (25-35); MEAN CORPUSCULAR HGB CONC 34 g/dL (31-37); MEAN CORPUSCULAR VOLUME 91 fL (79-100); MONO # 0.6 x10^3/uL (0.0-1.1); MONO % 9 % (0-9); NEUT % 59 % (31-73); PLATELET COUNT 145 x10^3/uL (140-400); RED BLOOD COUNT 4.01 x10^6/uL (4.30-5.70); RED CELL DISTRIBUTION WIDTH 13.4 % (11.5-14.5); WHITE BLOOD COUNT 6.8 x10^3/uL (4.0-11.0)
[2017-01-15 08:08] VITALS: BP 138/79
[2017-01-15] MEDS: LISINOPRIL 20 MG TABLET PO SCH (08:08)
[2017-01-15] MEDS: risperiDONE 1 MG TABLET. PO SCH (08:08)
[2017-01-15] MEDS: hydroCHLOROthiazide 25 MG TABLET PO SCH (08:08)
[2017-01-15] MEDS: glipiZIDE 5 MG TABLET PO SCH (08:08)
[2017-01-15] MEDS: CHOLECALCIFEROL (VITAMIN D3) 1,000 UNIT TABLET PO SCH (08:09)
[2017-01-15 08:14] LABS: ALBUMIN 3.2 g/dL (3.4-5.0); ALBUMIN/GLOBULIN RATIO 0.8 (1.0-1.7); CALCIUM 8.9 mg/dL (8.5-10.1); CREATININE 1.5 mg/dL (0.7-1.3); GFR 57.4; MAGNESIUM 1.7 mg/dL (1.8-2.4); POTASSIUM 4.2 mmol/L (3.5-5.1); TOTAL BILIRUBIN 0.2 mg/dL (0.2-1.0); TOTAL PROTEIN 7.1 g/dL (6.4-8.2)
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
== END 2017-01-15 15:20 | disposition home or self-care (01) | DRG 884 ==
LOC: GEROPSY 19:11
PROVIDERS: ADMIT Psychiatry & Neurology Psychiatry; ATTEND Psychiatry & Neurology Psychiatry
DX: F01.51 Vascular dementia, unspecified severity, with behavioral disturbance (principal); E11.22 Type 2 diabetes mellitus with diabetic chronic kidney disease; F02.81 Dementia in other diseases classified elsewhere, unspecified severity, with behavioral disturbance; N18.3 Chronic kidney disease, stage 3 (moderate); B19.20 Unspecified viral hepatitis C without hepatic coma; E78.5 Hyperlipidemia, unspecified; F41.9 Anxiety disorder, unspecified; F42.9 Obsessive-compulsive disorder, unspecified; R31.9 Hematuria, unspecified; F32.9 Major depressive disorder, single episode, unspecified; F10.150 Alcohol abuse with alcohol-induced psychotic disorder with delusions; Y90.9 Presence of alcohol in blood, level not specified; I12.9 Hypertensive chronic kidney disease with stage 1 through stage 4 chronic kidney disease, or unspecified chronic kidney disease; Z83.3 Family history of diabetes mellitus; Z86.73 Personal history of transient ischemic attack (TIA), and cerebral infarction without residual deficits; Z60.2 Problems related to living alone; F19.10 Other psychoactive substance abuse, uncomplicated
CPT/HCPCS: 36415; 80053; 80061; 81001; 82306; 82607; 82947; 83036; 83540; 83550; 83735; 84436; 84443; 84480; 85025; 86592; 86593; 93005; J1650; J1815